=== PATIENT | male | born 1975 | race African-American/Black ===

== ENCOUNTER 2022-06-05 02:13 | Emergency (ER) | payer MEDICAID ==
[~2022-06-05] VITALS: Ht 180.3 cm; Wt 77.0 kg
[2022-06-05 02:18] VITALS: BP 147/95
== END 2022-06-05 03:05 | disposition left against medical advice (07) ==
LOC: EMS 02:14
DX: F41.9 Anxiety disorder, unspecified (principal); R06.02 Shortness of breath; Z53.21 Procedure and treatment not carried out due to patient leaving prior to being seen by health care provider

== ENCOUNTER 2024-05-25 02:01 | Emergency (ER) | payer MEDICAID ==
[~2024-05-25] VITALS: Ht 180.3 cm; Wt 72.7 kg
[2024-05-25 02:04] VITALS: BP 150/81; PULSE 118; RESP 22; TEMP 97.5; O2SAT 99
== END 2024-05-25 03:07 | disposition home or self-care (01) ==
LOC: EMS 02:01
DX: S70.312A Abrasion, left thigh, initial encounter (principal); S80.811A Abrasion, right lower leg, initial encounter; F14.10 Cocaine abuse, uncomplicated; F12.90 Cannabis use, unspecified, uncomplicated; Z02.89 Encounter for other administrative examinations; Z65.3 Problems related to other legal circumstances; X58.XXXA Exposure to other specified factors, initial encounter; Y93.39 Activity, other involving climbing, rappelling and jumping off; Y92.89 Other specified places as the place of occurrence of the external cause; Y99.8 Other external cause status
CPT/HCPCS: 99281; Z7502